=== PATIENT | male | born 1985 | race Caucasian/White ===

== ENCOUNTER 2016-12-23 10:19 | Emergency (ER) | payer OTHER ==
[~2016-12-23] VITALS: Ht 185.4 cm; Wt 118.3 kg
[2016-12-23 10:30] VITALS: TEMP 37.1; Ht 185.4 cm; Wt 118.3 kg
[2016-12-23 12:47] VITALS: BP 134/93; PULSE 75; O2SAT 97
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
== END 2016-12-23 12:49 | disposition home or self-care (01) ==
LOC: C.EDB 10:21 → C.EDC 12:49
DX: Z77.21 Contact with and (suspected) exposure to potentially hazardous body fluids (principal); S60.512A Abrasion of left hand, initial encounter; Y04.0XXA Assault by unarmed brawl or fight, initial encounter; Y99.0 Civilian activity done for income or pay; Y92.149 Unspecified place in prison as the place of occurrence of the external cause

== ENCOUNTER → 2017-01-02 | Outpatient (CLI) | payer OTHER ==
[2017-01-02 16:18] LABS: HEMATOCRIT 45.7 % (42-52); MEAN CELL VOLUME 94.8 fL (80-100); MEAN CORPUSCULAR HEMOGLOBIN 32.6 pg (25-34); MEAN CORPUSCULAR HGB CONC 34.4 g/dl (32-36); MEAN PLATELET VOLUME 11.5 fL (7.4-10.4); PLATELET COUNT 231 K/uL (130-400); RED BLOOD COUNT 4.82 M/uL (4.7-6.1); WHITE BLOOD COUNT 4.87 K/uL (4.8-10.8)
[2017-01-02 16:19] LABS: BASO ABS # 0.13 K/uL (0-0.2); BASOPHIL % 2.7 % (0-2); COMPLETE YES; EOSINOPHIL % 5.4 %; LYMPH ABS # 1.26 K/uL (1.2-3.4); LYMPHOCYTE % 25.9 %; NEUTROPHILS % 44.5 %; VARIANT LYM ABS # 0.78 K/uL; VARIANT LYMPHOCYTE % 16.1 %
[2017-01-02 16:32] LABS: ALB/GLOB RATIO 1.1 (0.9-2); ALKALINE PHOSPHATASE 52 U/L (45-117); ALT/SGPT 87 U/L (12-78); AST/SGOT 42 U/L (15-37); BLOOD UREA NITROGEN 12 mg/dl (7-18); BUN/CREATININE RATIO 10.9 (10-20); CALCIUM 9.3 mg/dl (8.5-10.1); CARBON DIOXIDE 21 mmol/L (21-32); CHLORIDE 108 mmol/L (98-107); GLUCOSE 94 mg/dl (70-99); POTASSIUM 4.2 mmol/L (3.5-5.1); SODIUM 141 mmol/L (136-145)
== END | disposition home or self-care (01) ==
LOC: C.LABSPEC 11:00
PROVIDERS: ATTEND Preventive Medicine Occupational Medicine
DX: Z77.21 Contact with and (suspected) exposure to potentially hazardous body fluids (principal)

== ENCOUNTER → 2017-02-01 | Outpatient (CLI) | payer OTHER ==
--- NOTE | 2017-02-02 10:43 | CODING QUERY NO DIAGNOSIS ---
TREATMENT RENDERED WITHOUT A DIAGNOSIS To promote full compliance with coding requirements relating to patient care, physician participation is requested in all cases of remote inpatient coder uncertainty. Please assist us with providing a diagnosis/symptom for the test(s) below: A diagnosis/symptom was not documented on your Order. A valid diagnosis/symptom is required to bill all insurances. Please remember that we are unable to code a diagnosis of rule out, probable, possible, questionable, or suspected. Tests that require a diagnosis: DOS: 02/01/17 * HIV DIAGNOSIS: Provider Signature: Date: Thank you Jennifer [facility] Information Management Once completed, please kindly fax back to [phone] For questions please call [phone]
== END | disposition home or self-care (01) ==
LOC: C.LABSPEC 13:23
PROVIDERS: ATTEND Preventive Medicine Occupational Medicine
DX: Z00.00 Encounter for general adult medical examination without abnormal findings (principal)

== ENCOUNTER → 2017-07-24 | Outpatient (CLI) | payer OTHER ==
[2017-07-24 10:34] LABS: METHOD OF COLLECTION MASTURBATION; SEMEN COLOR YELLOW-GRAY (GRY/GRYWHTE); SEMEN TIME OF COLLECTION 820; TYPE OF SPECIMEN CONTAINER STERILE
[2017-07-24 10:38] LABS: DAYS OF ABSTINENCE 7; SPERM VIABILITY STAIN NOT INDICATED % (>58%)
== END | disposition home or self-care (01) ==
LOC: C.LAB 09:34
PROVIDERS: ATTEND Family Medicine
DX: Z31.69 Encounter for other general counseling and advice on procreation (principal)